=== PATIENT | female | born 1980 | race Caucasian/White ===

== ENCOUNTER 2017-10-04 22:01 | Emergency (ER) | payer OTHER ==
[~2017-10-04] VITALS: Ht 160 cm; Wt 82.3 kg
[~2017-10-04 22:01] MED LIST: ALBUAER2 INH; FLUO20CA36 PO; LCTX PO; MTR600 PO; MUPI1CRE TOP; [UNRECOGNIZED DRUG - CODE] PO
[2017-10-04 22:18] VITALS: TEMP 36.7; Ht 160 cm; Wt 82.3 kg
[2017-10-04] MEDS ORDERED: METOCLOPRAMIDE HCL INJ 5 MG/ML 2 ML VIAL IV STA (22:40)
[2017-10-04] MEDS ORDERED: LIDOCAINE HCL 2% VISC SOLN 20 ML UDC PO STA (22:40)
[2017-10-04] MEDS ORDERED: ALUMINUM/MAGNESIUM SUSP 30 ML UDC PO STA (22:40)
[2017-10-04] MEDS ORDERED: SODIUM CHLORIDE 0.9% 1000ML 1,000 ML IV STA (22:40)
[2017-10-04] MEDS ORDERED: DiphenhydrAMINE HCL 50 MG/ML VIAL IV STA (22:40)
[2017-10-04] MEDS ORDERED: LAMO200T35 PO (23:05)
[2017-10-04] MEDS ORDERED: IBUP-1050 PO (23:05)
[2017-10-04] MEDS ORDERED: ONDA4TAB46 PO (23:05)
--- NOTE | 2017-10-04 23:20 | DIAGNOSTIC IMAGING REPORT ---
SINGLE VIEW CHEST CLINICAL HISTORY: Atypical chest pain. FINDINGS: An AP, portable, upright chest radiograph is compared to study dated 05/25/2014. The cardiomediastinal silhouette is unremarkable. The lungs and pleural spaces are clear. No pneumothorax is seen. The bony thorax is grossly intact. IMPRESSION: No active disease in the chest. Electronically signed by: Geovanni Mays M.D. 10/04/2017 11:19 PM Dictated Date/Time: 10/04/2017 11:19 PM
[2017-10-05 00:44] LABS: BASO % 0.4 %; BASO ABS # 0.03 K/uL (0-0.2); EOS % 2.1 %; EOS ABS # 0.15 K/uL (0-0.5); HEMATOCRIT 37.3 % (37-47); HEMOGLOBIN 12.7 g/dL (12.0-16.0); IG# 0.02 K/uL (0.00-0.02); LYMPH % 47.7 %; LYMPH ABS # 3.39 K/uL (1.2-3.4); MEAN CELL VOLUME 93.7 fL (80-100); MEAN CORPUSCULAR HEMOGLOBIN 31.9 pg (25-34); MEAN PLATELET VOLUME 8.8 fL (7.4-10.4); MONO % 8.9 %; MONO ABS # 0.63 K/uL (0.11-0.59); NEUT % 40.6 %; NEUT ABS # 2.89 K/uL (1.4-6.5); PLATELET COUNT 371 K/uL (130-400); RED CELL DISTRIBUTION WIDTH CV 13.1 % (11.5-14.5); WHITE BLOOD COUNT 7.11 K/uL (4.8-10.8)
[2017-10-05 01:08] LABS: ALBUMIN 3.1 gm/dl (3.4-5.0); ALT/SGPT 16 U/L (12-78); AST/SGOT 11 U/L (15-37); BLOOD UREA NITROGEN 6 mg/dl (7-18); CALCIUM 8.2 mg/dl (8.5-10.1); CARBON DIOXIDE 24 mmol/L (21-32); CREATININE 0.72 mg/dl (0.60-1.20); GLUCOSE 83 mg/dl (70-99); LIPASE 107 U/L (73-393); POTASSIUM 3.4 mmol/L (3.5-5.1); SODIUM 142 mmol/L (136-145)
[2017-10-05 01:19] LABS: ALKALINE PHOSPHATASE 64 U/L (45-117); TOTAL PROTEIN 6.6 gm/dl (6.4-8.2)
--- NOTE | 2017-10-05 01:19 | EMERGENCY ROOM VISIT NOTE ---
ED Visit Note First contact with patient: 22:27 I did evaluate and examine this patient myself. I did guide management for the patient. I agree with the PA's assessment as discussed. Please see the PAs dictation for further details. I did independently review the x-rays and blood work.
[2017-10-05] MEDS ORDERED: POTASSIUM CHLORIDE 10 MEQ TABCR PO STA (01:31)
[2017-10-05] MEDS ORDERED: PHENERGAN 25MG HOMEPACK PO ONE (01:45)
[2017-10-05] MEDS ORDERED: CEPHALEXIN 500MG HOME PACK 1 EA BTL PO ONE (02:15)
[2017-10-05] MEDS ORDERED: CEPH500C2 PO (02:16)
[2017-10-05 02:31] VITALS: BP 103/69
[2017-10-05 02:36] VITALS: PULSE 66; O2SAT 96
--- NOTE | 2017-10-05 03:06 | EMERGENCY ROOM VISIT NOTE ---
History First contact with patient: 22:27 Chief Complaint: VOMITING Stated Complaint: VOMITING, TROUBLE URINATING, PAIN IN AB Nursing Triage Summary: abd and chest pain, vomiting, poor appetite for 9 days History of Present Illness The patient is a 37 year old female who presents to the Emergency Room with complaints of nausea, vomiting and epigastric discomfort and urinary symptoms for the past several days. Patient states she has been underneath more stress lately. She thinks these are causing her symptoms. Patient just moved back to the area from [place]. Patient denies chest pain, dyspnea, fever, chills, cough, congestion, back pain, vaginal itching or discharge. Review of Systems An 10 system review of systems was completed with positives and pertinent negatives listed in the HPI. Past Medical/Surgical History Medical Problems: (1) Appendectomy (2) BIPOLAR DISORDER, UNSPECIFIED (3) PARAN SCHIZO-CHR/EXACERB (4) TOBACCO USE DISORDER (5) Tonsillectomy Family History Diabetes mellitus Heart disease Hypertension Seizures Social History Smoking Status: Current Every Day Smoker Alcohol Use: none Drug Use: none Marital Status: single Occupation Status: unemployed Current/Historical Medications Scheduled Cephalexin Monohydrate (Keflex), 500 MG PO BID Lamotrigine (Lamictal), 200 MG PO HS Scheduled PRN Ibuprofen (Advil), 600-800 MG PO TID PRN for Headache or Pain Ondansetron Hcl (Zofran), 4 MG PO PRN UD PRN for Nausea Physical Exam Vital Signs Date Time Temp Pulse Resp B/P (MAP) Pulse Ox O2 Delivery O2 Flow Rate FiO2 10/05/17 01:01 62 20 107/71 96 10/05/17 00:46 124/81 10/05/17 00:31 68 22 98 10/05/17 00:01 70 12 139/88 99 10/05/17 00:00 63 10/04/17 23:55 Room Air 10/04/17 23:47 113/75 10/04/17 22:18 36.7 88 18 123/83 99 Room Air Physical Exam VITALS: Vitals are noted on the nurse's note and reviewed by myself. Vital signs stable. GENERAL: White female, in no acute distress, nondiaphoretic, well-developed well -nourished. SKIN: The skin was without rashes, erythema, edema, or bruising. There is no tenting of the skin. Capillary reflex less than 2 seconds. HEAD: Normocephalic atraumatic. EARS: External auditory canals clear, tympanic membranes pearly artis without erythema or effusion bilaterally. EYES: Pupils equal round and reactive to light and accommodation. Conjunctivae without injection, sclerae without icterus. Extraocular movements intact. NOSE: Patent, turbinates without inflammation or discharge. MOUTH: Mucous membranes moist. Pharynx without erythema or exudate. Uvula midline. Airway patent. Tongue does not deviate. NECK: Supple without nuchal rigidity. No lymphadenopathy. No thyromegaly. Cervical spine is nontender. No JVD. HEART: Regular rate and rhythm without murmurs gallops or rubs. LUNGS: Clear to auscultation bilaterally without wheezes, rales or rhonchi. No retractions or accessory muscle use. ABDOMEN: Positive bowel sounds x 4. Normal tympanic percussion. Soft, nontender, without masses or organomegaly. Calles sign negative. No guarding or rebound tenderness. No CVA tenderness MUSCULOSKELETAL: No muscle atrophy, erythema, or edema noted. NEURO: Patient was alert and oriented to person place and time. Normal sensation to light and sharp touch. No focal neurological deficits. Medical Decision & Procedures Laboratory Results 10/05/17 00:34 Red Blood Count 3.98, Mean Corpuscular Volume 93.7, Mean Corpuscular Hemoglobin 31.9, Mean Corpuscular Hemoglobin Concent 34.0, Mean Platelet Volume 8.8, Neutrophils (%) (Auto) 40.6, Lymphocytes (%) (Auto) 47.7, Monocytes (%) (Auto) 8.9, Eosinophils (%) (Auto) 2.1, Basophils (%) (Auto) 0.4, Neutrophils # (Auto) 2.89, Lymphocytes # (Auto) 3.39, Monocytes # (Auto) 0.63, Eosinophils # (Auto) 0.15, Basophils # (Auto) 0.03 10/05/17 00:34 Test 10/05/17 00:34 10/05/17 01:35 10/05/17 01:49 White Blood Count 7.11 K/uL (4.8-10.8) Red Blood Count 3.98 M/uL (4.2-5.4) Hemoglobin 12.7 g/dL (12.0-16.0) Hematocrit 37.3 % (37-47) Mean Corpuscular Volume 93.7 fL (80-100) Mean Corpuscular Hemoglobin 31.9 pg (25-34) Mean Corpuscular Hemoglobin Concent 34.0 g/dl (32-36) Platelet Count 371 K/uL (130-400) Mean Platelet Volume 8.8 fL (7.4-10.4) Neutrophils (%) (Auto) 40.6 % Lymphocytes (%) (Auto) 47.7 % Monocytes (%) (Auto) 8.9 % Eosinophils (%) (Auto) 2.1 % Basophils (%) (Auto) 0.4 % Neutrophils # (Auto) 2.89 K/uL (1.4-6.5) Lymphocytes # (Auto) 3.39 K/uL (1.2-3.4) Monocytes # (Auto) 0.63 K/uL (0.11-0.59) Eosinophils # (Auto) 0.15 K/uL (0-0.5) Basophils # (Auto) 0.03 K/uL (0-0.2) RDW Standard Deviation 45.0 fL (36.4-46.3) RDW Coefficient of Variation 13.1 % (11.5-14.5) Immature Granulocyte % (Auto) 0.3 % Immature Granulocyte # (Auto) 0.02 K/uL (0.00-0.02) Anion Gap 8.0 mmol/L (3-11) Est Creatinine Clear Calc Drug Dose 109.7 ml/min Estimated GFR () 124.9 Estimated GFR (Non- 107.7 BUN/Creatinine Ratio 7.8 (10-20) Calcium Level 8.2 mg/dl (8.5-10.1) Total Bilirubin 0.2 mg/dl (0.2-1) Direct Bilirubin < 0.1 mg/dl (0-0.2) Aspartate Amino Transf (AST/SGOT) 11 U/L (15-37) Alanine Aminotransferase (ALT/SGPT) 16 U/L (12-78) Alkaline Phosphatase 64 U/L (45-117) Troponin I < 0.015 ng/ml (0-0.045) Total Protein 6.6 gm/dl (6.4-8.2) Albumin 3.1 gm/dl (3.4-5.0) Lipase 107 U/L (73-393) Thyroid Stimulating Hormone (TSH) 0.499 uIu/ml (0.300-4.500) Human Chorionic Gonadotropin, Qual NEG (NEG) Urine Color YELLOW Urine Appearance CLOUDY (CLEAR) Urine pH 7.0 (4.5-7.5) Urine Specific [place] 1.020 (1.000-1.030) Urine Protein NEG (NEG) Urine Glucose (UA) NEG (NEG) Urine Ketones TRACE (NEG) Urine Occult Blood 2+ (NEG) Urine Nitrite NEG (NEG) Urine Bilirubin NEG (NEG) Urine Urobilinogen NEG (NEG) Urine Leukocyte Esterase MODERATE (NEG) Urine WBC (Auto) 10-30 /hpf (0-5) Urine RBC (Auto) 10-30 /hpf (0-4) Urine Hyaline Casts (Auto) 5-10 /lpf (0-5) Urine Epithelial Cells (Auto) >30 /lpf (0-5) Urine Bacteria (Auto) 1+ (NEG) Bedside Troponin I < 0.030 ng/ml (0-0.045) Medications Administered Medications (Trade) Dose Ordered Sig/Rhona Route Start Time Stop Time Status Last Admin Dose Admin Lidocaine HCl (Viscous Lidocaine 2% Soln) 10 ml NOW STAT PO 10/04/17 22:40 10/04/17 22:42 DC 10/05/17 00:19 10 ML Al Hydroxide/Mg Hydroxide (Maalox Susp) 30 ml NOW STAT PO 10/04/17 22:40 10/04/17 22:42 DC 10/05/17 00:19 30 ML Metoclopramide HCl (Reglan Inj) 5 mg NOW STAT IV 10/04/17 22:40 10/04/17 22:42 DC 10/05/17 00:22 5 MG Diphenhydramine HCl (Benadryl Inj) 12.5 mg NOW STAT IV 10/04/17 22:40 10/04/17 22:42 DC 10/05/17 00:20 12.5 MG Sodium Chloride 1,000 ml @ 999 mls/hr Q1H1M STAT IV 10/04/17 22:40 10/04/17 23:40 DC 10/05/17 00:14 999 MLS/HR ED Course Prior records/ancillary studies reviewed. Triage Nursing notes reviewed. Additional history obtained from friend. The patient's history was concerning for epigastric abdominal pain and UTI sx Differential diagnosis: Etiologies such as appendicitis, diverticulitis, PUD, biliary pathology, UTI, pancreatitis, obstruction, mesenteric ischemia, aortic pathology, infections, inflammatory bowel disease, renal colic, as well as others were entertained. Physical examination findings: As above. ER treatment provided: GI cocktail, Reglan, Benadryl, IV fluids, Keflex When the nurse gave the Reglan, the patient had a localized reaction of some mild redness around the IV site. This resolved on its own. This is marked as an allergy. On reassessment the patient felt better. Diagnostics interpreted by me: ECG: Normal sinus, normal intervals, no acute ST-T wave changes. Impression normal sinus rhythm interpreted by myself The labs revealed 2 negative troponins. Urine concerning for infection sent for culture. Negative hCG Imaging studies: Chest x-ray with no acute consolidation, pneumothorax free of my interpretation Exam and history seem consistent with gastritis and UTI. Patient's been underneath more stress lately. She felt much better to be medicated as above. She is tolerating fluids. Her nausea and vomiting and epigastric discomfort resolved. I do not believe this is cardiac in etiology. She was afebrile nontoxic. She is advised to take medications as directed, rest, stay well- hydrated, decrease stress and follow-up family care in a few days here in the ER sooner for abdominal pain, fevers, chest pain, worsening signs or symptoms or as needed. By the evaluation outlined above emergent etiologies such as appendicitis, diverticulitis, PUD, biliary pathology, pancreatitis, obstruction, mesenteric ischemia, aortic pathology, inflammatory bowel disease, renal colic, as well as others were deemed relatively unlikely. The pt informed about the findings as listed above. All questions were answered and pleased with the treatment. Return instructions were outlined and the patient was discharged in stable condition. Outpatient prescription management: Keflex, Phenergan Referral: The patient was referred back to their primary care physician for follow-up in 2 to 3 days for a recheck of the current condition. Case reviewed with my attending The chart was completed utilizing [employer] voice recognition software. Grammatical errors, random word insertions, pronoun errors, and incomplete sentences are an occassional consequence of this system due to software limitations, ambient noise, and hardware issues. Any formal questions or concerns about the content, text, or information contained within the body of this dictation should be directly addressed to the physician acute care assistant for clarification. Medical Decision As above Medication Reconcilliation Current Medication List: was personally reviewed by me Blood Pressure Screening Patient's blood pressure: Normal blood pressure Impression Primary Impression: UTI (urinary tract infection) Additional Impressions: Stress Epigastric abdominal pain Vomiting Departure Information Dispostion Home / Self-Care Condition GOOD Prescriptions Cephalexin Monohydrate (KEFLEX) 500 Mg Cap 500 MG PO BID for 5 Days, #10 CAP Prov: Desirae Jo .JANIE 10/05/17 Forms HOME CARE DOCUMENTATION FORM, IMPORTANT VISIT INFORMATION Patient Instructions UTI, Stress Relief Relaxation, Vomiting - [facility], [facility] Additional Instructions Reflux: Try Maalox or Zantac for symptoms for reflux. Avoid large meals. Avoid acidic foods. Rest and drink plenty of fluids as tolerated. Continue current medications. Avoid strenuous activities and anything that worsens your pain. Resume normal activities once your symptoms resolve. Return to the ER immediately for worsening or persistent chest pain, abdominal pain, black or blood in your stools, vomiting, fevers, chest pains, difficulty breathing, worsening of your condition, or as needed. Follow up with your primary physician in 2-3 days for a recheck of your current condition. UTI: DO NOT drive, drink alcohol, operate machinery, or perform dangerous activities today. You were given medications in the ER that can affect your ability to safely function or operate a vehicle. Keflex 500mg: Take one pill twice daily for 7 days for your urine infection. All antibiotics can cause diarrhea. If this occurs and you feel worse or it does not resolve in 1-2 days follow up with your doctor or return to the Emergency Department as this could be signs of serious underlying problems. Any medication can cause an allergic reaction, stop the pills immediately and return to the ER for rash, hives, breathing difficulties, or swelling. Phenergan 25 m tablet every 6 hours as needed for nausea and or vomiting. No alcohol or driving on this medication. Rest and drink plenty of fluids as tolerated. Slow sips of water or sports drinks are recommended instead of large amounts all at once. Continue current medications. Once your stomach is settled start with a clear liquid diet (jello, soup broth, etc.) and then advance as tolerated. You should avoid full, heavy meals for about 24 hrs from the time your symptoms resolved. Return to the ER immediately for worsening or persistent abdominal/back pain, vomiting, fevers, worsening of your condition, or as needed. Follow up with your primary physician within 2-3 days for a recheck of the current condition. Problem Qualifiers Primary Impression: UTI (urinary tract infection) Urinary tract infection type: acute cystitis Hematuria presence: with hematuria Qualified Codes: N30.01 - Acute cystitis with hematuria
== END 2017-10-05 02:50 | disposition home or self-care (01) ==
LOC: C.EDB 22:03
DX: N30.01 Acute cystitis with hematuria (principal); F43.9 Reaction to severe stress, unspecified; R10.13 Epigastric pain; R11.10 Vomiting, unspecified; F31.9 Bipolar disorder, unspecified; F17.200 Nicotine dependence, unspecified, uncomplicated; Z90.89 Acquired absence of other organs; Z83.3 Family history of diabetes mellitus; Z82.49 Family history of ischemic heart disease and other diseases of the circulatory system; Z82.0 Family history of epilepsy and other diseases of the nervous system; Z79.899 Other long term (current) drug therapy

== ENCOUNTER 2018-01-02 10:11 | Emergency (ER) | payer OTHER ==
[~2018-01-02] VITALS: Ht 165.1 cm; Wt 81.6 kg
[~2018-01-02 10:11] MED LIST changes: +ACYC-57 PO; -ALBUAER2 INH; -FLUO20CA36 PO; +LAMO200T35 PO; -LCTX PO; -MTR600 PO; -MUPI1CRE TOP; +NITR-5 PO; -[UNRECOGNIZED DRUG - CODE] PO
[2018-01-02 10:18] VITALS: TEMP 37.3; Ht 165.1 cm; Wt 81.6 kg
[2018-01-02] MEDS ORDERED: KETOROLAC TROMETHAMINE 30 MG/ML VIAL IV STA (10:26)
[2018-01-02] MEDS ORDERED: DiphenhydrAMINE HCL 50 MG/ML VIAL IV STA (10:26)
[2018-01-02] MEDS ORDERED: SODIUM CHLORIDE 0.9% 1000ML 1,000 ML IV STA (10:26)
[2018-01-02] MEDS ORDERED: PROCHLORPERAZINE 5 MG/ML 2 ML VIAL IV STA (10:26)
[2018-01-02 11:05] LABS: BASO % 0.4 %; BASO ABS # 0.03 K/uL (0-0.2); EOS % 1.2 %; HEMATOCRIT 40.7 % (37-47); HEMOGLOBIN 13.6 g/dL (12.0-16.0); IG# 0.02 K/uL (0.00-0.02); LYMPH % 28.3 %; LYMPH ABS # 2.27 K/uL (1.2-3.4); MEAN CELL VOLUME 95.8 fL (80-100); MEAN CORPUSCULAR HGB CONC 33.4 g/dl (32-36); MEAN PLATELET VOLUME 9.1 fL (7.4-10.4); MONO ABS # 0.72 K/uL (0.11-0.59); NEUT % 60.9 %; NEUT ABS # 4.89 K/uL (1.4-6.5); PLATELET COUNT 304 K/uL (130-400); RED CELL DISTRIBUTION WIDTH CV 13.4 % (11.5-14.5); RED CELL DISTRIBUTION WIDTH SD 46.4 fL (36.4-46.3); WHITE BLOOD COUNT 8.03 K/uL (4.8-10.8)
[2018-01-02 11:24] LABS: ALBUMIN 3.6 gm/dl (3.4-5.0); ALKALINE PHOSPHATASE 69 U/L (45-117); ALT/SGPT 20 U/L (12-78); AST/SGOT 14 U/L (15-37); BLOOD UREA NITROGEN 12 mg/dl (7-18); CALCIUM 8.7 mg/dl (8.5-10.1); CARBON DIOXIDE 26 mmol/L (21-32); CREATININE 0.75 mg/dl (0.60-1.20); GLUCOSE 91 mg/dl (70-99); POTASSIUM 3.9 mmol/L (3.5-5.1); SODIUM 139 mmol/L (136-145); TOTAL PROTEIN 7.6 gm/dl (6.4-8.2)
--- NOTE | 2018-01-02 13:27 | EMERGENCY ROOM VISIT NOTE ---
History Report prepared by Mya: Venice Giron Under the Supervision of: Dr. Kate Zhou M.D. First contact with patient: 10:19 Chief Complaint: HEADACHE Stated Complaint: HEADACHE History of Present Illness The patient is a 37 year old female who presents to the Emergency Room with complaints of a worsening headache that started 2 days ago. The patient reports that she had a headache accompanied by dizziness a few days ago that went away but came back 2 days ago, worse than before. She reports having pain in the right side of her head and ringing in her head. She describes the headache as a "swishing sound." The patient complains she has experienced hot flashes and cold sweats. She states that taking Ibuprofen and Excedrin did not alleviate her symptoms. The patient claims she had no history of headaches. She also denies any fever and vomiting. She reports that she quit smoking a month and a half ago. Source of History: patient Onset: 2 days ago Position: head Quality: ache, other (ringing, "Swishing sound") Timing: worsening Associated Symptoms: No fevers, No vomiting Note: The patient complains of hot flashes and cold sweats. Review of Systems See HPI for pertinent positives & negatives. A total of 10 systems reviewed and were otherwise negative. Past Medical & Surgical Medical Problems: (1) Appendectomy (2) BIPOLAR DISORDER, UNSPECIFIED (3) PARAN SCHIZO-CHR/EXACERB (4) TOBACCO USE DISORDER (5) Tonsillectomy Family History Diabetes mellitus Heart disease Hypertension Seizures Social History Smoking Status: Former Smoker Alcohol Use: none Drug Use: none Marital Status: single Occupation Status: unemployed Current/Historical Medications Scheduled Lamotrigine (Lamictal), 200 MG PO HS Scheduled PRN Acyclovir (Zovirax), 200 MG PO UD PRN for UNDECIDED Allergies Coded Allergies: Azithromycin (Unverified Allergy, Intermediate, RASH, 01/02/18) Latex (Verified Allergy, Intermediate, SWELLING, 01/02/18) Mirtazapine (Unverified Allergy, Intermediate, ., 01/02/18) Tetracycline (Verified Allergy, Intermediate, RASH, 01/02/18) Codeine (Verified Allergy, Mild, ITCHING, 01/02/18) pATIENT SAID ALLERGIC TO T#3 BUT TAKES TYLENOL OK Metoclopramide (Unverified Allergy, Mild, RASH, 01/02/18) Pt had small erythema around IV site within minutes of receiving Benadryl and Reglan, no systemic reaction noted, self-resolved. Morphine (Verified Allergy, Unknown, pt. states rash,itchy,vomiting, ) Penicillins (Verified Allergy, Unknown, HIVES-FAMILY HISTORY, 01/02/18) FAMILY HISTORY Sulfa Drugs (Verified Allergy, Unknown, SEIZURES, 01/02/18) SEIZURES Ciprofloxacin (Verified Adverse Reaction, Unknown, CONFUSED, 01/02/18) Doxycycline (Verified Adverse Reaction, Unknown, CONFUSED, 01/02/18) Physical Exam Vital Signs Date Time Temp Pulse Resp B/P (MAP) Pulse Ox O2 Delivery O2 Flow Rate FiO2 01/02/18 13:28 59 16 103/65 97 01/02/18 11:39 56 16 97/69 98 Room Air 01/02/18 10:18 37.3 63 16 112/72 97 Room Air Physical Exam Vital signs reviewed. General: Well-appearing, in no significant distress. HEENT: No scleral icterus, PERRLA, neck supple. Atraumatic. No meningeal signs. Cardiovascular: Regular rate and rhythm, no extra sounds. Pulmonary: Clear to auscultation bilaterally, normal work of breathing. Abdomen: Soft, nontender, nondistended, positive bowel sounds. Musculoskeletal: Atraumatic, no peripheral edema. Neurologic: Patient awake alert and oriented x 3, full strength in all 4 extremities. Cranial nerves 2 through 12 grossly intact. Skin: Warm, dry, no rash Medical Decision & Procedures Laboratory Results 01/02/18 10:55 Red Blood Count 4.25, Mean Corpuscular Volume 95.8, Mean Corpuscular Hemoglobin 32.0, Mean Corpuscular Hemoglobin Concent 33.4, Mean Platelet Volume 9.1, Neutrophils (%) (Auto) 60.9, Lymphocytes (%) (Auto) 28.3, Monocytes (%) (Auto) 9.0, Eosinophils (%) (Auto) 1.2, Basophils (%) (Auto) 0.4, Neutrophils # (Auto) 4.89, Lymphocytes # (Auto) 2.27, Monocytes # (Auto) 0.72, Eosinophils # (Auto) 0.10, Basophils # (Auto) 0.03 01/02/18 10:55 Test 7/28/18 10:55 White Blood Count 8.03 K/uL (4.8-10.8) Red Blood Count 4.25 M/uL (4.2-5.4) Hemoglobin 13.6 g/dL (12.0-16.0) Hematocrit 40.7 % (37-47) Mean Corpuscular Volume 95.8 fL (80-100) Mean Corpuscular Hemoglobin 32.0 pg (25-34) Mean Corpuscular Hemoglobin Concent 33.4 g/dl (32-36) Platelet Count 304 K/uL (130-400) Mean Platelet Volume 9.1 fL (7.4-10.4) Neutrophils (%) (Auto) 60.9 % Lymphocytes (%) (Auto) 28.3 % Monocytes (%) (Auto) 9.0 % Eosinophils (%) (Auto) 1.2 % Basophils (%) (Auto) 0.4 % Neutrophils # (Auto) 4.89 K/uL (1.4-6.5) Lymphocytes # (Auto) 2.27 K/uL (1.2-3.4) Monocytes # (Auto) 0.72 K/uL (0.11-0.59) Eosinophils # (Auto) 0.10 K/uL (0-0.5) Basophils # (Auto) 0.03 K/uL (0-0.2) RDW Standard Deviation 46.4 fL (36.4-46.3) RDW Coefficient of Variation 13.4 % (11.5-14.5) Immature Granulocyte % (Auto) 0.2 % Immature Granulocyte # (Auto) 0.02 K/uL (0.00-0.02) Anion Gap 6.0 mmol/L (3-11) Est Creatinine Clear Calc Drug Dose 109.4 ml/min Estimated GFR () 118.9 Estimated GFR (Non- 102.5 BUN/Creatinine Ratio 16.0 (10-20) Calcium Level 8.7 mg/dl (8.5-10.1) Total Bilirubin 0.2 mg/dl (0.2-1) Direct Bilirubin < 0.1 mg/dl (0-0.2) Aspartate Amino Transf (AST/SGOT) 14 U/L (15-37) Alanine Aminotransferase (ALT/SGPT) 20 U/L (12-78) Alkaline Phosphatase 69 U/L (45-117) Total Protein 7.6 gm/dl (6.4-8.2) Albumin 3.6 gm/dl (3.4-5.0) Laboratory results per my review. Medications Administered Medications (Trade) Dose Ordered Sig/Rhona Route Start Time Stop Time Status Last Admin Dose Admin Prochlorperazine Edisylate (Compazine Inj) 10 mg NOW STAT IV 01/02/18 10:26 01/02/18 10:28 DC 01/02/18 11:09 10 MG Ketorolac Tromethamine (Toradol Inj) 30 mg NOW STAT IV 01/02/18 10:26 01/02/18 10:28 DC 01/02/18 11:08 30 MG Diphenhydramine HCl (Benadryl Inj) 25 mg NOW STAT IV 01/02/18 10:26 01/02/18 10:28 DC 01/02/18 11:09 25 MG Sodium Chloride 1,000 ml @ 999 mls/hr Q1H1M STAT IV 01/02/18 10:26 01/02/18 11:26 DC 01/02/18 11:09 999 MLS/HR ED Course 1025: Past medical records reviewed. The patient was evaluated in room A4B. A complete history and physical examination was performed. 1026: Ordered NSS 1000 ml @ 999 mls/hr IV, Benadryl Inj 25 mg IV, Toradol inj 30 mg IV, Compazine Inj 10 mg IV. 1247: Upon reevaluation, the patient appeared to have improvement of her symptoms. I discussed findings with her. She verbalized agreement of the treatment plan. The patient was discharged home. Medical Decision Differential diagnosis: Intracranial hemorrhage, intracranial mass, migraine headache, tension headache , sinusitis, meningitis This patient was evaluated and appeared to be in no significant distress. Physical examination is fairly unrevealing. Patient had CT imaging performed within the last 2 weeks for similar headache. The study was negative. Patient was hydrated with normal saline solution, given IV Compazine, IV Benadryl and IV Toradol. She had significant improvement in her headache. She stated that she felt sleepy. Laboratory work is fairly unrevealing, there is no evidence of meningitis. I suspect this is migraine in origin. The patient was discharged to the care of family to rest in a dark and quiet space. She will follow-up with her primary care physician this week for reevaluation and return to the ED for worsening of symptoms or any medical concerns. Medication Reconcilliation Current Medication List: was personally reviewed by me Blood Pressure Screening Patient's blood pressure: Normal blood pressure Blood pressure disposition: Did not require urgent referral Impression Primary Impression: Headache Scribe Attestation The scribe's documentation has been prepared under my direction and personally reviewed by me in its entirety. I confirm that the note above accurately reflects all work, treatment, procedures, and medical decision making performed by me. Departure Information Dispostion Home / Self-Care Referrals No Doctor, Assigned (PCP) Forms HOME CARE DOCUMENTATION FORM, IMPORTANT VISIT INFORMATION Patient Instructions My [facility] Additional Instructions Diagnosis: Headache Do not drive for 6 hours after receiving medications in the emergency department. Continue Tylenol and ibuprofen as needed for pain. Drink plenty of clear fluids. Follow-up with your primary care physician this week for reevaluation. Return to the ED for worsening of symptoms or any medical concerns.
[2018-01-02 13:28] VITALS: BP 103/65; PULSE 59; O2SAT 97
== END 2018-01-02 13:32 | disposition home or self-care (01) ==
LOC: EDBD 10:11 → C.EDA 10:13
DX: R51 Headache (principal); Z87.891 Personal history of nicotine dependence; F31.9 Bipolar disorder, unspecified; F20.0 Paranoid schizophrenia; Z79.899 Other long term (current) drug therapy; Z88.1 Allergy status to other antibiotic agents; Z88.8 Allergy status to other drugs, medicaments and biological substances; Z91.040 Latex allergy status; Z88.5 Allergy status to narcotic agent; Z88.0 Allergy status to penicillin; Z88.2 Allergy status to sulfonamides

== ENCOUNTER 2024-02-12 05:30 | Observation (INO) ==
--- NOTE | 2024-02-01 13:38 | Anesthesiology Consultation ---
Date of Service February 01, 2024 Assessment & Plan (1) Encounter for pre-operative examination: - Per health assessment and treatment teacher on 02/01/24: COVID positive 01/18/24, no current infectious disease symptoms. Chart Review Chart Review: Acceptable Risk for Surgery and Patient NOT seen in Pre Admission Testing History Surgery Operation Date: 02/12/24 08:35 Proposed Procedures p Total Laparoscopic Hysterectomy, Bilateral Salpingectomy and Cystoscopy, Possible Laparotomy as any Indicated Procedures - Heath Granados MD Height/Weight Height: 5 ft 3 in Weight: 99.79 kg Allergies Allergy/AdvReac Type Severity Reaction Status Date / Time Sulfa (Sulfonamide AdvReac Severe SEIZURES Verified 02/01/24 11:19 Antibiotics) azithromycin AdvReac Intermediate Rash Verified 02/01/24 11:19 ciprofloxacin AdvReac Intermediate CONFUSED Verified 02/01/24 11:19 codeine AdvReac Intermediate ITCHING Verified 02/01/24 11:19 doxycycline AdvReac Intermediate CONFUSED Verified 02/01/24 11:19 latex AdvReac Intermediate SWELLING Verified 02/01/24 11:19 metoclopramide AdvReac Intermediate RASH Verified 02/01/24 11:19 mirtazapine AdvReac Intermediate palpitations, Verified 02/01/24 13:37 headache, dry mouth morphine AdvReac Intermediate pt. states Verified 02/01/24 11:19 rash,itchy,vomiting Penicillins AdvReac Intermediate Hives, Verified 02/01/24 13:34 seizure per S EMR tetracycline AdvReac Intermediate RASH Verified 02/01/24 11:19 Medications Home Medications Medication Instructions Recorded Confirmed Last Taken lisdexamfetamine 50 mg chewable 70 mg PO QAM 11/13/23 02/01/24 Unknown tablet (Vyvanse) albuterol sulfate 90 mcg/actuation 2 puff inhalation DAILY PRN 02/01/24 02/01/24 Unknown aerosol inhaler Shortness Of Breath gabapentin 300 mg capsule See Rx Instructions .Route .COMPLEX 02/01/24 02/01/24 Unknown multivitamin 1 tab PO QAM 02/01/24 02/01/24 Unknown Past Medical History Medical History (Updated 02/01/24 @ 13:31 by Evelina Blackman PA-C) Acid reflux Asthma Bipolar 1 disorder Depression Past Surgical History Surgical History H/O tubal ligation History of appendectomy History of eye surgery Eye muscle surgery as a child History of knee surgery Left History of tonsillectomy Social History Smoking Status: Never smoker tobacco type: cigarettes Do You Dip or Chew Tobacco: No Hx Alcohol Use: No Hx Substance Use: No substance use type: does not use Testing Laboratory Results 01/28/24 WBC: 12.9 H/H: 13/41 PLATELETS: 429,000 SODIUM: 139 POTASSIUM: 4.5 CHLORIDE: 102 CO2: 22 BUN: 8 CREATININE: 0.7 GLUCOSE: 86 AST: 36 ALT: 48 Alk phos: 109 Echocardiogram Date: 06/26/20 EF 60-64% Normal LV wall motion No valvular disease
[~2024-02-12 05:30] MED LIST changes: -ACYC-57 PO; +ALLERGY Noted to ORDERED Medication SCH; -LAMO200T35 PO; -NITR-5 PO
--- OUTSIDE RECORDS SUMMARY | 2024-02-12 05:33 | External Medical Summary | Summary of Care ---
Author Name Unknown Organization [facility] Address [address] [place] [address] Phone [phone] Care Team Providers Care Screen Printing Equipment Setter Name Role Phone Adolph Garcia MD Primary Care Provider [phone] Reason for Visit * Reason Onset Date Comments Medication Refill 02/10/2024 Encounter Details Date Type Department Care Team (Late st Contact Info) Description 02/10/2024 Refill Gynecology/Obstetrics [facility] [address] [place] [id number] Heath Hdz MD [address] [place] [id number] Preop testing Allergies Active Allergy Reactions Criticality Noted Date Comments Azithromycin Rash 01/28/2018 Cephalexin Other (Please comment) 11/11/2023 Ciprofloxacin 03/23/2013 Carpal tunnel Hydromorphone Hcl 01/22/2015 Itchy, face burning Doxycycline Rash 10/23/2012 Ziprasidone Hcl 08/04/2018 Visual disturbance Latex 07/12/2012 swelling Nitrofurantoin Nausea/vomiting 07/12/2021 Penicillins Seizure High 02/16/2002 Metoclopramide Hcl Rash 12/08/2017 Mirtazapine Tachycardia 12/08/2017 Quetiapine Fumarate 08/04/2018 Angry and agitated Sulfa Antibiotics 02/16/2002 convulsions Hydroxyzine Pamoate 06/17/2018 documented as of this encounter (statuses as of 02/10/2024) Medications Medication Sig Dispensed Refills Start Date End Date Status Vraylar 3 MG Oral Capsule 2 Capsules. 02/28/2022 Active FLUoxetine HCl 40 MG Oral Capsule (PROzac) Take 20 mg by mouth in the morning. Active Lisdexamfetamine Dimesylate 70 MG Oral Capsule (Vyvanse) Take 1 Capsule by mouth in the morning. 03/24/2023 Active guanFACINE HCl ER 1 MG Oral Tablet Extended Release 24 Hour Take 3 Tablets by mouth at bedtime. 04/08/2023 Active Famciclovir 125 MG Oral TabletIndications:He rpes simplex vulvovaginitis Take 125 mg by mouth in the morning and 125 mg before bedtime. 10 Tablet 3 07/20/2023 Active Albuterol Sulfate HFA 108 (90 Base) MCG/ACT Inhalation Aerosol SolutionIndications: Mild intermittent asthma with exacerbation Inhale 2 Puffs by mouth every 6 hours as needed for Shortness of Breath or Wheezing. 18 g 2 08/13/2023 Active Magnesium Citrate Oral SolutionIndications: Preop testing Take 296 ml solution 5 PM the night before surgery 300 mL 02/10/2024 Active Magnesium Citrate Oral SolutionIndications: Preop testing Take 296 ml solution 5 PM the night before surgery 300 mL 01/27/2024 4 Discontinue d(Refill) documented as of this encounter (statuses as of 02/10/2024) Active Problems Problem Noted Date Diagnosed Date Body mass index (BMI) of 40.0 to 44.9 in adult 0 10/19/2023 Overview: Per Obesity protocol Dysplasia of cervix, low grade (MARYANN 1) 2 Overview: repeat pap 2022 Herpes simplex vulvovaginitis 11/30/2020 Gastroesophageal reflux disease without esophagi tis 06/14/2020 Obesity, Class I, BMI 30.0-34.9 (see actual BMI) 02/02/2018 Mild intermittent asthma without complication Hypermobility syndrome 08/12/2013 Bipolar I disorder, most recent episode depresse d, moderate 08/10/2007 Overview[facility] Tobacco use disorder documented as of this encounter (statuses as of 02/10/2024) Resolved Problems Problem Noted Date Diagnosed Date Resolved Date History of tobacco use 01/22/201506/14 Vitamin D deficiency 09/16/2010 021 Overview: Vitamin D 20.9 ADVANCE DIRECTIVE INFORMATION 04/14/2007 06/14/2020 Overview: No, Advance Directive brochure offered , patient declined. 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 Major depressive disorder, r ecurrent severe without psychotic features 01/01/2004 06/14/2020 Abdominal pain, generalized 12/30/2002 01/01/2004 OVERWEIGHT 12/30/2002 07/04/2013 ROUTINE MEDICAL EXAM 12/30/2002 008 Breast disorder 01/05/2002 01/01/2004 Abnormal weight gain 01/05/2002 004 Nausea 12/06/2001 01/01/2004 Overview: ICD-10 update of inactive term Absence of menstruation 12/06/200112/07 Allergic rhinitis 06/14/2020 Varicella without complication 10/02/2010 Developmental disorder 06/14 History of herpes genitalis 04/20/2018 BMI 30.0-30.9,adult 02/03/20 18 documented as of this encounter (statuses as of 02/10/2024) Immunizations Name Administration Dates Next Due PPD 11/10/2022,12/21/2020 TDAP (age 10 and older)(Boostrix) 05/04/2018 TDAP, Age 7 and older, IM (Adacel) 08/11/2007 documented as of this encounter Social History Tobacco Use Types Packs/Day Years Used Date Smoking Tobacco: Former Cigarettes 0.5 5 0 01/23/2018 - 01/23/2023 Smokeless Tobacco: Never Comments:6 per day restarted after quitting for 3 years. Alcohol Use Standard Drinks/Week Comments No 0 (1 standard drink = 0.6 oz pur e alcohol) PHQ-2 Answer Date Recorded PHQ Adult Total Score 1 11/30/2020 Hunger Vital Sign Answer Date Recorded Within the past 12 months, y ou worried that your food would run out before you got the money to buy more. Never true 04/03/20 23 Within the past 12 months, t he food you bought just didn't last and you didn't have money to get more. Never true 04/03/2023 Childcare Answer Date Recorded Do you feel overwhelmed with taking care of a child, family member or friend? No 04/03/2023 Does your family need help f inding childcare? (Household - for ages 0-17 years) Not on file 04/03/2023 Clothing Answer Date Recorded Have you been unable to get clothing when it was really needed? No 04/03/2023 Is your family able to get c lothes or diapers when needed? (Household - for ages 0-17 years) Not on file 04/03/2023 Personal Safety Answer Date Recorded Do you feel unsafe or have concerns for your saf ety? No 04/03/2023 Do you have concerns for you r family's safety? (Household - for ages 0-17 years) Not on file 04/03/2023 Utilities Answer Date Recorded Do you have trouble paying y our heating, water, or electric bill? No 04/03/2023 Is your family able to pay t he heat, water, or electric bill? (Household - for ages 0-17 years) Not on file 04/03/2023 Does your family have access to good internet? (Household - for ages 0-17 years) Not on file 04/03/2023 Employment Status Answer Date Recorded Are you unemployed or without regular income? No 04/03/2023 Does the household have a re gular source of income? (Household - for ages 0-17 years) Not on file 04/03/2023 Social Connections Answer Date Recorded How often do you feel lonely or isolated from those around you? Sometimes 04/03/2023 Financial Resource Strain Answer Date R ecorded Do you have any trouble payi ng for your medications, or do you think you might in the future? No 04/03/2023 Does your family have troubl e paying for medicine? (Household - for ages 0-17 years) Not on file 04/03/2023 Transportation Needs Answer Date Record ed READ ONLY Do you have troubl e getting a ride to medical visits or work? Never True 04/03/2023 Does your family have a hard time getting a ride to doctors visits? (Household - for ages 0-17 years) Not on file 04/03/2023 Has lack of transportation k ept you from medical appointments, meetings, work, or from getting things needed for daily living? Check all that apply. (Adult - for ages 18 years and over) Not on file 04/03/2023 Do you (or your family) have trouble finding or paying for a ride (transportation)? (Household - for ages 0-17 years) Not on file 04/03/2023 Housing Stability Answer Date Recorded Do you currently live in a s helter or have no steady place to sleep at night? No 04/03/2023 READ ONLY Do you think you a re at risk of becoming homeless? No 04/03/2023 Does your family worry about paying for your home or becoming homeless? (Household - for ages 0-17 years) Not on file 1 Are you homeless or worried that you might be in the future? (Adult - for ages 18 years and over) Not on file Are you (or your family) charlie eless or worried that you might be in the future? (Household - for ages 0-17 years) Not on file Food Insecurity Answer Date Recorded Do you need food for this week? No 04/03/2023 Are you able to get enough f ood for your family? (Household - for ages 0-17 years) Not on file 04/03/2023 Does your family need food t his week? (Household - for ages 0-17 years) Not on file 04/03/2023 Do you always have enough fo od for your family? (Household - for ages 0-17 years) Not on file 04/03/2023 Sex and Gender Information Value Date Recorded Sex Assigned at Female 08/10/2019 2:41 PM EST Gender Identity Female 08/10/2019 2:41 PM EST Sexual Orientation Straight 08/10/2019 2: 41 PM EST Job Start Date Occupation Industry Not on file Not on file Not on file documented as of this encounter Miscellaneous Notes * Telephone Encounter - Shakira Mora [facility] - 02/10/2024 5:28 PM EDT Signed Prescriptions: Disp Refills Magnesium Citrate Oral Solution 300 mL 0 Sig: Take 296 ml solution 5 PM the night before surgeryAuthorizing Provider: Joy HDZ User: SHAKIRA MORA * Telephone Encounter - Shakira Mora RP - 02/10/2024 5:27 PM EDT Pharmacy states they did not receive transmitted script from 01/26. Pharmacist resending again. Thank you, Shakira Mora PharmD, [facility] Clinical Pharmacist [facility] 02/10/24 5:27 PM [phone] * Telephone Encounter - Ilana Calderon milling general superintendent - 02/10/2024 5:09 PM EDT Please resend Rx to [facility] [address] [address] Confirmed pharmacy did not receive original prescription. Pending Prescriptions: Disp Refills Magnesium Citrate Oral Solution 300 mL 0 Sig: Take 296 ml solution 5 PM the night before surgery Last Visit: 01/27/2024 (in office), Visit date not found (telemedicine) 02/29/2024 If no future appointments scheduled, and last appointment is greater than a year ago, please schedule patient for a follow-up appointment Last date the medication was ordered: 01/27/2024 Patient Phone Numbers Labs: Lab Results Component Value Date/Time CREAT 0.7 01/28/2024 02:08 PM CREAT 0.76 12/03/2022 12:00 AM CREAT 0.8 11/30/2019 12:59 PM POTASSIUM 4.5 01/28/2024 02:08 PM POTASSIUM 5.0 12/03/2022 12:00 AM POTASSIUM 4.5 11/30/2019 12:59 PM TSH 0.52 01/28/2023 12:21 PM TSH 0.85 12/03/2022 12:00 AM TSH 0.42 04/02/2018 02:02 PM LDL 135 (H) 11/26/2020 01:15 PM LDL 85 09/13/2018 08:17 AM LDLCALC 147 (H) 12/03/2022 12:00 AM ALT 48 (H) 01/28/2024 02:08 PM ALT 20 11/30/2019 12:59 PM HGBA1C 5.1 12/03/2022 12:00 AM HGBA1C 4.7 06/18/2018 08:26 AM documented in this encounter Plan of Treatment Upcoming Encounters Date Type Department Care Team (Late st Contact Info) Description 02/29/2024 11:45 AM EDT Office Visit Gynecology/Obstetrics [facility] [address] [place] [id number] Heath Hdz MD [address] [place] [address] 07/04/2024 10:00 AM EST Office Visit Gynecology/Obstetrics [facility] [address] [place] [address] Reema Gary PA-C [address] [place] [address] Health Maintenance Due Date Last Done Comments Pneumococcal Vaccine: Pediatrics (0 to 5 Years) and At-Risk Patients (6 to 64 Years) (1 of 2 - PCV) 09/02/1987 Hepatitis B Vaccine (1 of 3 - 19+ 3-dose series) 2000 *SPIROMETRY ONCE FOR ASTHMA-ADULT 05/01/2022 COVID-19 Vaccine ( - 2022- season) 2024 Influenza Vaccine (FLU shot) (#1) 2024 Mammogram 07/08/2024 07/08/2023, 03/08, 03/06/2022, Additional history exists Pap Smear 06/29/2026 06/29/2023, 06/2021, 01/28/2018, Additional history exists Diabetes Screening 01/27/2027 01/28/2024, 0 01/28/2023, 12/03/2022, Additional history exists Lipid Panel 12/04/2027 12/03/2022, 11/07, 09/13/2018, Additional history exists DTap/Tdap Vaccines (4 - Td or Tdap) 05/04/2028 05/04/2018, 12/08/2017 (Declined), 08/11/2007 Cervical Cancer Screening 06/29/2028 HPV/Co-Test 06/29/2028 06/29/2023 HPV (Gardasil) Vaccine Aged Out No lo nger eligible based on patient's age to complete this topic MENINGOCOCCAL (MENACTRA/MENVEO) Aged Out No longer eligible based on patient's age to complete this topic documented as of this encounter Medical Devices Not on filedocumented as of this encounter Visit Diagnoses Diagnosis Preop testing Preoperative examination, unspecified documented in this encounter Care Teams Screen Printing Equipment Setter Relationship Specialty Start Date End Date Adolph Garcia MD [address] [place] [id number] PCP - General Family Medicine 06/18/20 documented as of this encounter
[2024-02-12] MEDS: LACTATED RINGER'S 1,000 ML IV SCH (06:20)
[2024-02-12] MEDS: LR 500ML BOLUS, THEN 15ML/HR IV SCH (06:20)
[2024-02-12 06:28] LABS: Pregnancy Test, Serum Negative (Negative)
[2024-02-12] MEDS ORDERED: PROPOFOL IV EMULSION 10 MG/ML 20 ML VIAL IV ONE (06:48)
[2024-02-12] MEDS ORDERED: fentaNYL citrate PF 100 MCG/2 ML VIAL ONE (06:48)
[2024-02-12] MEDS ORDERED: DEXAMETHASONE SOD INJ 4 MG/ML VIAL ONE (06:48)
[2024-02-12] MEDS ORDERED: ONDANSETRON INJ 2 MG/ML 2 ML VIAL ONE (06:48)
[2024-02-12] MEDS ORDERED: LIDOCAINE 2% 2 ML VIAL/AMP(20MG/ML) INFIL ONE (06:48)
[2024-02-12] MEDS ORDERED: MIDAZOLAM HCL 1 MG/ML 2ML VIAL ONE (06:49)
[2024-02-12] MEDS ORDERED: ATROPINE SULFATE 0.1 MG/ML 10ML SYR IV PRN (06:51)
[2024-02-12] MEDS ORDERED: KETOROLAC 30 MG/ML VIAL IV PRN (06:51)
--- NOTE | 2024-02-12 06:55 | History & Physical Bridge Note ---
Date of Service February 12, 2024 History & Physical Bridge Note I have examined the patient, reviewed the History & Physical and in the interval since the performance of the History & Physical I have noted the following changes of clinical significance: no changes noted
[2024-02-12] MEDS ORDERED: Nursing to Pharmacy Communication SCH (07:00)
[2024-02-12] MEDS: ceFAZolin 2000MG 2,000 MG/15 ML SYR IV SCH (07:18)
[2024-02-12] MEDS ORDERED: diphenhydrAMINE 50 MG/ML VIAL ONE (07:42)
[2024-02-12] MEDS ORDERED: ROCURONIUM BROMIDE 10 MG/ML 5 ML VIAL IV ONE (07:42)
[2024-02-12] MEDS ORDERED: PHENYLEPHRINE 100MCG/ML 10ML SYR IV ONE (08:31)
[2024-02-12] MEDS: METHYLENE BLUE 0.5% 10 ML VIAL ONE (08:32)
[2024-02-12] MEDS: ceFAZolin 2,000 MG/15 ML IV PUSH IV ONE (08:32)
[2024-02-12] MEDS ORDERED: SUGAMMADEX SODIUM 200 MG/2 ML VIAL IV ONE (08:34)
[2024-02-12] MEDS: FLOSEAL HEMOSTATIC MATRIX 10ML TOP ONE (09:09)
[2024-02-12] MEDS ORDERED: KETOROLAC 30 MG/ML VIAL ONE (09:14)
[2024-02-12] MEDS: BUPIVACAINE/EPINEPHRINE 0.5% MPF 1:200,000 30 ML VIAL ONE (09:16)
[2024-02-12] MEDS ORDERED: ONDANSETRON INJ 2 MG/ML 2 ML VIAL IV PRN (09:48)
[2024-02-12] MEDS ORDERED: MAGNESIUM HYDROXIDE SUSP 30 ML UDC PO PRN (09:48)
[2024-02-12] MEDS: fentaNYL citrate PF 100 MCG/2 ML VIAL IV PRN (09:48)
[2024-02-12] MEDS ORDERED: ZOLPIDEM TARTRATE 5 MG TAB PO PRN (09:48)
[2024-02-12] MEDS ORDERED: oxyCODONE/ACETAMINOPHEN 5mg/325mg TAB PO PRN (09:48)
[2024-02-12] MEDS ORDERED: LACTATED RINGER'S 1,000 ML IV SCH (10:00)
[2024-02-12] MEDS ORDERED: HYDROmorphone INJ 1 MG/ML SYRINGE ONE (10:11)
[2024-02-12] MEDS: HYDROmorphone INJ 1 MG/ML SYRINGE IV PRN (10:11)
--- NOTE | 2024-02-12 10:11 | Operative Report ---
Post Operative Report Pre & Post Diagnosis Operation Date: 02/12/24 07:15 Pre-Op Diagnosis: Adenomyosis Post-Op Diagnosis: Adenomyosis I identified the patient and participated in the time-out.: Yes Procedure Operation Date: 02/12/24 07:15 Actual Procedures p Total Laparoscopic Hysterectomy, Bilateral Salpingectomy and Cystoscopy(Bilateral) - Heath Granados MD Surgeon eHath Granados MD Spreading Machine Operator Kailash Romeo Estimated Blood Loss 5 Findings Consistent with Post-Op Diagnosis Nml female escutcheon. 10 week size uterus with small fundal fibroid. Tubes and ovaries appear grossly normal Fluids IVF; 1000ml Urine ; 250ml Specimens Uterus with cervix left and right fallopian tubes Drains none Anesthesia Type General Indications Menorrhagia. pt declined medical treatment Description of Procedure FINDINGS: DESCRIPTION OF PROCEDURE: The patient was prepped and draped in normal sterile fashion in the dorsal lithotomy position. Abdul catheter was placed without difficulty. An [employer] uterine manipulator was placed in the uterus to help with colpotomy. Attention was paid to the abdominal part of the procedure where a supraumbilical incision was made and carried down to the fascia. Rosi was used to grab the fascia. Veress needle was introduced into the abdomen at a 45-degree angle while tenting up the abdomen. Intra-abdominal placement was confirmed with a water-filled syringe. A water drop and suction test was performed. The abdomen was insufflated with CO2 gas. The Veress needle was removed and a 5 mm non bladed trocar was attached to a laparoscope was introduced into the abdomen under direct visualization. This was a non bladed trocar. Once inside the abdomen, laparoscope was repositioned. Inspection of the abdomen shows the findings as dictated above. Three more accessory ports were placed, two 5 mm accessory ports were placed in the lower abdomen on the contralateral side, in addition, an 11 mm trocar was placed on the left upper quadrant. General inspection of the abdomen and pelvis was performed as dictated above. There was an adhesion of omentum to the umbilicus. This omentum was examined. There was no bowel in the omentum, so the LigaSure was passed through one of the contralateral port and dissection of the omentum from the abdominal wall was performed. There was good hemostasis. Left and right fallopian tubes, the ureters, uterosacrals, bowels, appendix were examined and identified. LigaSure was passed through the left accessory port. The fallopian tube was identified and grabbed 4 cm from the cornua of the uterus with the LigaSure and transected. This was followed by opening of the left anterior leaf of the broad ligament. This allowed for fenestration of the posterior left broad ligament. The mid-section of the left fallopian tube, utero-ovarian and meso-ovarian pedicles were transected as well. Same procedure was performed on the contralateral side. The anterior broad ligament dissection was carried to the mid-section of the vesicouterine peritoneum over the bladder using the Harmonic scalpel. Same procedure was carried out on the contralateral side. The posterior broad ligament peritoneum was carefully dissected also from both sides over the uterosacral arch in order to displace the ureters laterally. Using traction and countertraction, the [place] retractor and irrigation probe was used to further dissect the bladder off the lower segment of the uterus. Bladder pillars and pubovesical fascia was dissected as well. Harmonic scalpel was used to obtain hemostasis where needed. Uterine manipulator was now palpable over the vaginal tissue. The right uterine pedicles were skeletonized and coagulated with the LigaSure. Good hemostasis was obtained. Same procedure was performed on the contralateral side. Cardinal ligaments were transected on both sides. Once good hemostasis was obtained, colpotomy was performed using the LigaSure hook from both sides. Uterus was removed through the vagina while still attached to the uterine manipulator. The bulb was attached to the uterine manipulator was reinserted into the vagina to establish pneumoperitoneum. With a grasper, the remaining section of the left ovary and tube were positioned anteromedially. Both fallopian tube is transected with the ligaSure. The fallopian tube removal is done away from the ovary in order to preserve blood flow to the ovary Same procedure was performed on the contralateral side. EndoStitch closure device was passed through the 11 mm port on the left. Using the [place] grasper for traction, colpotomy closure was performed. The uterosacral ligaments incorporated into the closure in order to decrease the risk of prolapse. Lapro ties were used with the EndoStitch. The 11-mm trocar site was closed with a Roque-Mccann under direct visualization. Attention was paid to the cystoscopy part of the procedure where a cystoscope was introduced into the bladder. There are no sutures seen in the bladder. There were no gross blood seen in the bladder as well. The bubble sign is noted showing the bladder was a close cavity. Both ureters were seen and there was efflux from both uterus. The skin incisions are closed with Dermabond, except for the 11-mm trocar site, which was closed with 4-0 Monocryl. The patient was returned to recovery in stable condition. Inspection of the vagina shows the vaginal cuff was intact. All instruments were removed from the vagina and the bladder and accounted for x2. Spreading Machine Operator was necessary for retraction and manipulation of instruments in order to provide for a safe operationI attest to the content of the Intraoperative Record and any orders documented therein. Any exceptions are noted below.
--- NOTE | 2024-02-12 11:17 | Anesthesiology Progress Note ---
Date of Service February 12, 2024 Anesthesia Post Procedure Vital Signs Vital Signs: Temp Pulse Pulse Resp BP Pulse Ox O2 Del Method 02/12/24 11:00 87 16 133/81 95 Nasal Cannula 02/12/24 10:45 87 16 122/88 94 Nasal Cannula 02/12/24 10:30 83 16 129/83 94 Nasal Cannula 02/12/24 10:20 37.0 C 91 H 17 119/82 95 Nasal Cannula 02/12/24 10:10 81 18 129/83 95 Nasal Cannula 02/12/24 10:00 81 20 131/85 95 Nasal Cannula 02/12/24 09:50 83 20 134/89 95 Oxymask 02/12/24 09:40 84 20 130/88 98 Oxymask 02/12/24 09:33 36.8 C 84 16 128/80 96 Oxymask 02/12/24 05:55 36.8 C 75 20 110/77 96 Room Air O2 Flow Rate 02/12/24 11:00 3 02/12/24 10:45 3 02/12/24 10:30 3 02/12/24 10:20 3 02/12/24 10:10 3 02/12/24 10:00 3 02/12/24 09:50 3 02/12/24 09:40 6 02/12/24 09:33 8 02/12/24 05:55 Pain Intensity Abdomen: Pain Intensity: 2 Transfer of Care Handoff Completed per policy Notes Mental Status: alert / awake / arousable Patient Amnestic to Procedure: Yes Nausea / Vomiting: adequately controlled Pain: adequately controlled Airway Patency, RR, SpO2: stable & adequate BP & HR: stable & adequate Hydration State: stable & adequate Anesthetic Complications: no major complications apparent
[2024-02-12] MEDS: IBUPROFEN 600 MG TAB PO PRN (16:55)
[2024-02-12] MEDS: oxyCODONE/ACETAMINOPHEN 5mg/325mg TAB PO PRN (18:25)
[2024-02-12] MEDS: DOCUSATE SODIUM 100 MG CAP PO SCH (21:04)
[2024-02-13 03:53] VITALS: TEMP 98.1
[2024-02-13 06:37] LABS: Basophils # (auto) 0.03 K/uL (0.00-0.20); Basophils % (auto) 0.2 %; Eosinophils # (auto) 0.05 K/uL (0.00-0.50); Eosinophils % (auto) 0.3 %; Hematocrit (blood only) 32.9 % (37.0-47.0); Hemoglobin 10.8 g/dl (12.0-16.0); Immature Granulocytes # (auto) 0.07 K/uL (0.01-0.20); Immature Granulocytes % (auto) 0.4 %; Lymphocytes # (auto) 3.21 K/uL (1.20-3.40); Lymphocytes % (auto) 18.6 %; Mean Corpuscular Hemoglobin 31.6 pg (25.0-34.0); Mean Corpuscular Hgb Conc 32.8 g/dL (32.0-36.0); Mean Corpuscular Volume 96.2 fL (80.0-100.0); Mean Platelet Volume 8.7 fL (9.4-12.4); Monocytes # (auto) 1.26 K/uL (0.11-0.59); Monocytes % (auto) 7.3 %; Neutrophils # (auto) 12.67 K/uL (1.40-6.50); Neutrophils % (auto) 73.2 %; Platelet Count 387 K/uL (130-400); RDW Coefficient of Variation 13.7 % (11.5-14.5); RDW Standard Deviation 48.5 fL (36.4-46.3); Red Blood Count 3.42 M/uL (4.20-5.40); White Blood Count 17.29 K/ul (4.8-10.8)
[2024-02-13 06:56] LABS: BUN Creatinine Ratio 16.3 (10-20); Calcium 7.7 mg/dl (8.6-10.3); Creatinine Clr Calc Pharmacy 102.9 ml/min; Est GFR (African American) 105.4 ml/min; Est GFR (Non-African American) 90.9 ml/min; Potassium 3.9 mmol/L (3.5-5.1)
[2024-02-13] MEDS: SIMETHICONE 80 MG CHEW PO PRN (08:37)
--- NOTE | 2024-02-13 12:46 | Obstetrical Progress Note ---
Date of Service February 13, 2024 Assessment & Plan Admission and Anticipated Discharge Date Admission Date: February 12, 2024 OB Progress Note abdomen soft and non tender no calf tenderness ambulating well vaginal bleeding scant hgb 10.8 patient requests discharge Results & Data Vital Signs (Past 12 Hours) Vital Signs Temp Pulse Resp BP Pulse Ox O2 Del Method 02/13/24 03:51 36.7 C 77 18 108/68 98 Room Air
--- OUTSIDE RECORDS SUMMARY | 2024-02-13 12:51 | External Medical Summary | Summary of Care ---
Author Name Unknown Organization [facility] Address [address] [place] [address] Phone [phone] Care Team Providers Care Operations Support Specialist Name Role Phone Adolph Garcia MD Primary Care Provider [phone] Encounter Details Date Type Department Care Team (Late st Contact Info) Description 02/12/2024 Result Scan Unspecified Department <No scans attached> Allergies Active Allergy Reactions Criticality Noted Date [...] as of this encounter (statuses as of 02/12/2024) Medications Medication Sig Dispensed Refills Start Date [...] bedtime. 04/08/2023 Active Famciclovir 125 MG Oral TabletIndications:Herp es simplex vulvovaginitis Take 125 mg by mouth in the morning and 125 mg before bedtime. 10 Tablet 3 07/20/2023 Active Albuterol Sulfate HFA 108 (90 Base) MCG/ACT Inhalation Aerosol SolutionIndications:Mi ld intermittent asthma with exacerbation Inhale 2 Puffs by mouth every 6 hours as needed for Shortness of Breath or Wheezing. 18 g 2 08/13/2023 Active Magnesium Citrate Oral SolutionIndications:Pr eop testing Take 296 ml solution 5 PM the night before surgery 300 mL 02/10/2024 Active documented as of this encounter (statuses as of 02/12/2024) Active Problems Problem Noted Date Diagnosed Date Body mass index (BMI) of 40.0 to 44.9 in adult 0 10/19/2023 Overview: Per Obesity protocol Dysplasia of cervix, low grade (MARYANN 1) Overview: repeat pap 2022 Herpes simplex vulvovaginitis 11/30/2020 Gastroesophageal reflux disease without esophagi tis 06/14/2020 Obesity, Class I, BMI 30.0-34.9 (see actual BMI) 02/02/2018 Mild intermittent asthma without complication Hypermobility syndrome 08/12/2013 Bipolar I disorder, most recent episode depresse d, moderate 08/10/2007 [facility] use [facility] documented as of this encounter (statuses as of 02/12/2024) Resolved Problems Problem Noted Date Diagnosed Date [...] as of this encounter (statuses as of 02/12/2024) Immunizations Name Administration Dates Next Due PPD [...] 04/03/2023 Does the household have a re lar source of income? (Household - for ages [...] 18 years and over) Not on file 3 Are you (or your family) charlie eless [...] on file documented as of this encounter Plan of Treatment Upcoming Encounters Date Type Department Care Team (Late st Contact Info) Description 02/29/2024 11:45 AM EDT Office Visit Gynecology/Obstetrics [facility] [address] [place] [id number] Heath Granados MD [address] [place] [phone] 07/04/2024 10:00 AM EST Office Visit Gynecology/Obstetrics [facility] [address] [place] [id number] Reema Gary PA-C [address] [place] [phone] Health Maintenance Due Date Last Done Comments [...] Additional history exists Pap Smear 06/29/2026 06/29/2023, 09/0 06/2021, 01/28/2018, Additional history exists Diabetes Screening [...] Not on filedocumented as of this encounter Procedures Procedure Name Priority Date/Time Associated Diagnosis Comments OUTSIDE LAB RESULTS 02/12/2024 documented in this encounter Results * OUTSIDE LAB RESULTS (02/12/2024) 02/12/2024 No Physician Data Unknown LABORATORY documented in this encounter Care Teams Operations Support Specialist Relationship Specialty Start Date End Date Adolph Garcia MD [address] [facility] [place] [id number] PCP - General Family Medicine 06/18/20 documented as of this encounter
[2024-02-13 13:12] VITALS: BP 123/80; PULSE 74; RESP 17; O2SAT 97
== END 2024-02-13 13:40 | disposition home or self-care (01) ==
LOC: ASU 05:30 → PACUINP 05:30 → 4E1 16:39